=== PATIENT | male | born 1975 | race American Indian/Alaskan Native ===

== ENCOUNTER 2017-12-14 11:45 | Emergency (ER) | payer SELFPAY ==
[2017-12-14 12:24] VITALS: BP 105/69
--- NOTE | 2017-12-14 14:36 | Emergency Department Report ---
ED General Adult HPI - General Chief complaint: Dizziness Stated complaint: DIZZINESS Time Seen by Provider: 12/14/17 14:25 Source: patient Mode of arrival: Ambulatory Limitations: No Limitations - History of Present Illness Initial comments: Mr. Monterroso is a healthy 42-year-old male who presents with visual changes. He noticed that he's had difficulty with seeing objects that are nearby. He has no difficulty with reading signs when driving. He is able to see objects and faces at a distance. However certain words are blurry. He denies headache. Denies chest pain. He denies paralysis. He denies paresthesias. Both eyes are affected. Objects are clear at certain distances and blurry mostly at near distances. -: days(s) (several days) Associated Symptoms: denies other symptoms. denies: confusion, chest pain, cough, diaphoresis, fever/chills, headaches, loss of appetite, malaise, nausea/ vomiting, shortness of breath, weakness - Related Data Allergies Allergy/AdvReac Type Severity Reaction Status Date / Time No Known Allergies Allergy Unverified 12/14/17 12:21 ED Review of Systems ROS: Stated complaint: DIZZINESS Other details as noted in HPI ED Past Medical Hx - Past Medical History Previous Medical History?: No - Social History Smoking Status: Never Smoker ED Physical Exam - General Limitations: No Limitations General appearance: alert, in no apparent distress - Head Head exam: Present: atraumatic, normocephalic - Eye Eye exam: Present: normal appearance, EOMI. Absent: scleral icterus, conjunctival injection, nystagmus - ENT ENT exam: Present: mucous membranes moist - Neck Neck exam: Present: normal inspection - Respiratory Respiratory exam: Present: normal lung sounds bilaterally. Absent: respiratory distress, wheezes, rales, rhonchi - Cardiovascular Cardiovascular Exam: Present: regular rate, normal rhythm. Absent: systolic murmur, diastolic murmur, rubs, gallop - GI/Abdominal GI/Abdominal exam: Present: soft, normal bowel sounds. Absent: distended, tenderness, guarding, rebound - Rectal Rectal exam: Present: deferred - Extremities Exam Extremities exam: Present: normal inspection - Back Exam Back exam: Present: normal inspection - Neurological Exam Neurological exam: Present: alert, oriented X3 - Psychiatric Psychiatric exam: Present: normal affect, normal mood - Skin Skin exam: Present: warm, dry, intact, normal color. Absent: rash ED Course Vital Signs 12/14/17 12:21 Temperature 98.7 F Pulse Rate 76 Respiratory 18 Rate Blood Pressure 105/69 O2 Sat by Pulse 99 Oximetry ED Medical Decision Making - Medical Decision Making Mr. Monterroso presents with visual changes typical of age-related presbyopia. I recommended eye exam. No indication of TIA. No indication of hypertensive emergency. Patient is very healthy with athletic build. I recommended clinical follow-up for full physical exam. He is now close to middle-aged which requires preventive care. His significant other will arrange follow-up with her personal dough cutting machine operator. Critical care attestation.: If time is entered above; I have spent that time in minutes in the direct care of this critically ill patient, excluding procedure time. ED Disposition Clinical Impression: Presbyopia Disposition: DC-01 TO HOME OR SELFCARE Is pt being admited?: No Does the pt Need Aspirin: No Condition: Stable Instructions: Refractive Errors of the Eye (ED) Referrals: [facility] [Outside] - 3-5 Days Forms: Work/School Release Form(ED) Time of Disposition: 14:36
== END 2017-12-14 14:41 | disposition home or self-care (01) ==
LOC: ED 11:45
DX: H52.4 Presbyopia (principal)
CPT/HCPCS: 93005; 93010; 99282